=== PATIENT | male | born 1980 | race Caucasian/White ===

== ENCOUNTER 2020-11-25 22:03 | Observation (INO) | payer OTHER ==
[~2020-11-25] VITALS: Ht 182.9 cm; Wt 91.1 kg
[2020-11-25] MEDS ORDERED: OMEPRAZOLE20 MG PO (22:33)
--- NOTE | 2020-11-26 03:41 | NUR ---
ASSESSMENT COMPLETED. PT REPORTS GENERALIZED WEAKNESS AND BEING TIRED. NO FACIAL DROOP, SPEECH CHANGES, ARM OR LEG DRIFT, PACKAGE WORKER EQUAL. PT REPORTS NUMBNESS IN FINGERS IS HIS BASELINE. TELE SHOWS SINUS LUIS CARLOS @ 53. IV WNL, FLUSHED WELL. PT STILL HAS HICCUPS. LUNGS CLEAR, HEART TONES REGULAR. ABD SOFT, NONTENDER, BOWEL TONES ACTIVE. NO OTHER NEEDS AT THIS TIME. 2 GUARDS IN ROOM.
--- NOTE | 2020-11-26 06:22 | NUR ---
VS AND I&O COMPLETED. PT STATES HE WILL NEED A SOFT DIET AT HIS FACILITY HE IS HAVING TROUBLE SWALLOWING. PT PASSED BEDSIDE SWALLOW AT ADMISSION AND HAS BEEN DRINKING FLUIDS WITHOUT DIFFICULTY. PT STATES HE HAS VERTIGO STILL. PT ALSO STATES THAT THE MAALOX GIVEN IN THE ER DID NOT RESOLVE HIS HEARTBURN. PT STATES HE DOES NOT HAVE HEARTBURN RIGHT NOW BUT WILL NEED PEPTO BISMOL LATER. MD NOTIFIED OF ISSUES.
--- NOTE | 2020-11-26 07:10 | NUR ---
Report received from Constance BELL. Pt resting in bed with eyes closed, awakens to voice. States would like pepto for stomach discomfort. No further needs identified. Will cont plan of care
--- NOTE | 2020-11-26 07:34 | EKG ---
[facility] [address] [facility] [place], [place] [address] Signed Sinus bradycardia Otherwise normal ECG No previous ECGs available Confirmed by TALITA THAKKAR MD ([id number]) on 11/26/2020 7:34:19 AM Electronically Signed By: TALITA THAKKAR MD 11/26/20 0734 PATIENT NAME: CHRISSY LOOMIS KODY Electrocardiogram DATE OF : 76 PHYSICIAN: TALITA THAKKAR MD REPORT #: [id number] REPORT IS CONFIDENTIAL AND NOT TO BE RELEASED WITHOUT AUTHORIZATION
--- NOTE | 2020-11-26 08:25 | NUR ---
PATIENT GIVEN ONE TABLET OF PEPTO BISMAL FOR INDIGESTION.
--- NOTE | 2020-11-26 09:15 | NUR ---
Assessment complete. NIH scale of 0. Pt showing no obvious neuro deficits, A+O, VSS. Irregular heart rhythym noted. Pt resting in bed, has no needs at this time. Call light in reach.
[2020-11-26] MEDS ORDERED: VOLTAREN ARTHRI20 GM TOP (11:26)
--- NOTE | 2020-11-26 11:26 | NUR ---
MED REC COMPLETE
--- NOTE | 2020-11-26 11:35 | NUR ---
Rounded on patient, resting in bed with eyes closed, even and unlabored respirations. Awakens to voice, states no needs at this time. Call light in reach
[2020-11-26] MEDS ORDERED: PLAVIX75 MG PO (12:04)
[2020-11-26] MEDS ORDERED: CHILDREN'S ASPI81 M1 PO (12:04)
--- NOTE | 2020-11-26 13:00 | NUR ---
Pt educated regarding discharge information, Rx and rx instructions, precautions related to blood thinners, and stroke symptoms including BEFAST protocol. Pt verbalizes understanding. VSS, IV removed, cath intact. Pt discharged via wheelchair with belongings in hand. Pt accompanied by correctional officers.
== END 2020-11-26 13:25 | disposition home or self-care (01) ==
LOC: ED 22:03 → MS 22:05
PROVIDERS: ADMIT Internal Medicine; ATTEND Internal Medicine
DX: I77.74 Dissection of vertebral artery (principal); K21.9 Gastro-esophageal reflux disease without esophagitis; G43.909 Migraine, unspecified, not intractable, without status migrainosus; Z20.822 Contact with and (suspected) exposure to COVID-19; Z87.891 Personal history of nicotine dependence
CPT/HCPCS: 36415; 70450; 70496; 70498; 71045; 80053; 80061; 83735; 84484; 85025; 85610; 85730; 93005; 93010; 99285-25; C9803; G0378; J2405; J7030; Q9967; U0003